=== PATIENT | female | born 1965 | race Caucasian/White ===

== ENCOUNTER 2017-05-15 18:39 | Emergency (ER) | payer MEDICARE, OTHER ==
[~2017-05-15] VITALS: Ht 172.7 cm; Wt 81.7 kg
[~2017-05-15 18:39] MED LIST: AMOCLA875 PO; AMOX500 PO; Bactrim Ds Tab1 EACH PO; CYCL10 PO; DIAZ5 PO; Dandruff 1% Sh325 ML TP; ESTNORT PO; GABA300 PO; GABA300T24 PO; HYDACE5 PO; MECL12.5 PO; METHI10 PO; NEOPOLHCSU OT; NORT25 PO; Naprosyn500 MG PO; OXYC10TA19 PO; OXYC15ER PO; PROG100 PO; Percocet 5-3251 EACH PO; Prednisone20 MG PO; Valium5 MG PO
[2017-05-15 19:39] LABS: Hematocrit 42.3 % (33.0-51.0); Hemoglobin 14.9 g/dL (11.5-16.0); Mean Corpuscular HGB 31.4 pg (26.0-34.0); Mean Corpuscular HGB Conc 35.2 g/dL (31.5-36.5); Mean Corpuscular Volume 89 fL (80-100); Mean Platelet Volume 9.2 fL (9.1-12.4); Platelet Count 291 K/mm3 (150-400); RDW Coefficient Variation 12.6 % (11.7-14.2); RDW Standard Deviation 41.6 fL (35.1-46.3); Red Blood Cell Count 4.75 M/mm3 (3.80-5.20); White Blood Cell Count 7.14 K/mm3 (4.00-11.30)
[2017-05-15] MEDS ORDERED: Valtrex1000 MG PO (19:49)
[2017-05-15] MEDS ORDERED: METHI10 PO (19:50)
[2017-05-15 20:02] LABS: Anion Gap 9 mmol/L (6-16); Blood Urea Nitrogen 9 mg/dL (8-24); Bun/Creatinine Ratio 9.5 (12.0-20.0); CO2, Blood 26 mmol/L (21-32); Calcium, Blood 9.6 mg/dL (8.5-10.1); Chloride, Blood 107 mmol/L (98-108); Creatinine, Blood 0.95 mg/dL (0.40-1.00); Glomerular Filtration Rate >60 (60-); Glucose, Blood 112 mg/dL (70-99); Potassium, Blood 3.2 mmol/L (3.5-5.5); Sodium, Blood 142 mmol/L (136-145)
[2017-05-15] MEDS ORDERED: PROP60 PO (20:30)
[2017-05-15] MEDS ORDERED: ATOM40 PO (20:30)
[2017-05-15] MEDS ORDERED: ALBU90OI INH (20:31)
[2017-05-15] MEDS ORDERED: CLARITIN10 MG PO (20:31)
[2017-05-15] MEDS ORDERED: LAMO25 PO (20:32)
== END 2017-05-15 20:25 | disposition home or self-care (01) ==
LOC: ER 18:39
PROVIDERS: Emergency Medicine
DX: I10 Essential (primary) hypertension (principal); Z79.899 Other long term (current) drug therapy; E05.90 Thyrotoxicosis, unspecified without thyrotoxic crisis or storm
CPT/HCPCS: 36415; 80048; 84439; 84443; 85027; 93005; 93010; 99283

== ENCOUNTER → 2019-02-22 | Outpatient (CLI) | payer MEDICARE, OTHER ==
[~2019-02-22] MED LIST changes: +ALBU90OI INH; +ATOM40 PO; +CLARITIN10 MG PO; +LAMO25 PO; +PROP60 PO; +Valtrex1000 MG PO
[2019-02-22 17:38] LABS: Source, Urine Catheter
[2019-02-22 18:23] LABS: Bilirubin, Urine Neg (Neg); Blood, Urine 3+ (Neg); Glucose Qualitative, Urine Neg (Neg); Ketones, Urine 1+ (Neg); Leukocyte Esterase, Urine 3+ (Neg); Nitrite, Urine Pos (Neg); Protein, Urine 1+ (Neg); Specific Gravity, Urine 1.025 (1.003-1.022); Urobilinogen, Urine NORM (Normal)
[2019-02-22 18:35] LABS: Appearance, Urine Hazy (Clear); Color, Urine Yellow (P-Yellow); White Blood Cells, Urine 25-50 /hpf (0-5)
[2019-02-22 18:36] LABS: Bacteria Many /hpf; Squamous Epithelial Cells Few /hpf (Few)
[2019-02-24 16:06] LABS: HPV 16 Negative (Negative); HPV 18 Negative (Negative); HPV OTHER HR TYPES Positive (Negative)
== END | disposition home or self-care (01) ==
LOC: LAB SHORT 17:35 → LAB 17:35
PROVIDERS: Obstetrics & Gynecology Gynecology
DX: R35.0 Frequency of micturition (principal); Z91.89 Other specified personal risk factors, not elsewhere classified
CPT/HCPCS: 81001; 87077; 87086; 87186; 87624; 87625; G0123